=== PATIENT | female | born 1950 | race Hispanic/Latino ===

== ENCOUNTER 2019-08-17 11:29 | Day surgery (SDC) | payer MEDICARE ==
[2019-08-16 13:28] VITALS: BP 140/64
[2019-08-16 13:30] LABS: BASOPHILS % (AUTO) 0.4 % (0.0-5.0); EOSINOPHILS % (AUTO) 0.9 % (0.0-8.0); HEMATOCRIT 35.1 % (36-48); LYMPHOCYTES % (AUTO) 37.8 % (21.0-51.0); MEAN CORPUSCULAR HEMOGLOBIN 25.1 pg (27.0-33.0); MEAN CORPUSCULAR HGB CONC 30.5 g/dL (32.0-36.0); MEAN CORPUSCULAR VOLUME 82.4 fL (79-99); MONOCYTES % (AUTO) 6.3 % (3.0-13.0); NEUTROPHILS % (AUTO) 54.2 % (40.0-77.0); PLATELET COUNT (AUTO) 281 K/uL (130-400); RED BLOOD CELL COUNT(AUTO) 4.26 MIL/uL (4.00-5.50); RED CELL DISTRIBUTION WIDTH 15.4 % (11.0-15.5); WHITE BLOOD COUNT (AUTO) 8.1 K/uL (4.8-10.8)
[2019-08-16 13:41] LABS: CREATININE 0.9 mg/dL (0.5-1.5); POTASSIUM 4.4 mmol/L (3.5-5.1)
[2019-08-17] VITALS (21 sets, daily range): BP systolic 102–162; BP diastolic 44–94
[~2019-08-17] VITALS: Ht 162.6 cm; Wt 128.0 kg
[~2019-08-17 11:29] MED LIST: ALPR1TAB2 PO; CEFAZOLIN 3GM /D5W 100ML 100 ML IV SCH; CHOL500062 PO; DICL2100G TP; DOCU-116 PO; ESOM40CA PO; FLUO40CA7 PO; FLUT16H NASAL; FURO40TA5 PO; GABA-531 PO; GLIP5TAB11 PO; INSU100I21 SQ; INSU100I3 SQ; LACTATED RINGERS 1000ML 1,000 ML IV SCH; LORA10TA7 PO; LOSA25TA41 PO; METF-446 PO; MONT10TA21 PO; POTA20PA41 PO; PRAV10TA39 PO; RIVA20TA PO; [UNRECOGNIZED DRUG - CODE] TP
[2019-08-17] MEDS ORDERED: SODIUM CHLORIDE 0.9% 1000ML 1,000 ML IV ONE (11:44)
[2019-08-17] MEDS: CEFAZOLIN SODIUM 1 GM VIAL ONE ×2 (12:23→13:10)
[2019-08-17] MEDS ORDERED: ONDANSETRON HCL 4 MG/2 ML VIAL ONE (12:51)
[2019-08-17] MEDS ORDERED: LIDOCAINE PF 2% 5ML ABBOJECT ONE (12:51)
[2019-08-17] MEDS ORDERED: DEXAMETHASONE SOD PHOSPHATE 10MG/ML 1ML VIAL ONE (12:51)
[2019-08-17] MEDS ORDERED: MIDAZOLAM HCL 1 MG/ML 2ML VIAL ONE (12:51)
[2019-08-17] MEDS ORDERED: ROCURONIUM 10MG/1ML SYR 10 MG/ML ML ONE ×2 (12:52→13:37)
[2019-08-17] MEDS ORDERED: FENTANYL CITRATE PF 50 MCG/1 ML 2ML VIAL ONE (12:52)
[2019-08-17] MEDS ORDERED: EPINEPHRINE 1 MG/ML 30ML VIAL IJ ONE (13:25)
[2019-08-17] MEDS ORDERED: GLYCOPYRROLATE 1 MG/5 ML SYRINGE ONE (14:09)
[2019-08-17] MEDS ORDERED: NEOSTIGMINE 5MG/5ML SYR IV ONE (14:09)
[2019-08-17] MEDS ORDERED: ALBUTEROL SULFATE 0.083% 2.5 MG/3 ML INH IH SCH (16:15)
[2019-08-17 17:51] LABS: ABG HCO3 21.7 mmol/L (21.0-28.0); ABG OXYGEN SATURATION 91.8 % (95.0-99.0); ABG PCO2 42 mmHg (32-45)
--- NOTE | 2019-08-17 18:20 | NUR ---
PT ARRIVED O2 STATS 93% RM, WITH EFFORT 95%, NO DISTRESS. PT SITTING UP IN BED, DRESSING TO UPPER RT SHOULDER D/I. NOTIFIED ANESTHESIA TROY CATHERINE, ORDER TO GIVE ALBUTEROL NEB TREATMENT IN DAY PT. PT STATS INCREASED TO 96%. PT CONTINUED TO MONITOR PT., STATS DECLINED TO 92%, INFORMED DR. ZHAO 1700 OF PT STATUS, INSTRUCTED TO HAVE DORENE PERALTA ASSESS PT TO DETERMINE IF PT NEEDS TO BE ADMITTED. PT ASSESSED, ORDERS FOR ABG LAB GIVEN BY ANESTHESIA DORENE PERALTA THEN INSTRUCTED TO CALL PATIENT'S SOA ARCHITECT MANAGER OF LOSS PREVENTION OPERATIONS: SUSAN LOCK, TO REPORT ABG RESULTS AND CURRENT STATUS. PT INFORMATION REVIEWED BY PULMONOLOGIS SOA ARCHITECT, ORDERS TO INSTRUCT PT TO BE DISCHARGED HOME AND INSTRUCT PT TO USE HER CPAP MACHINE AT HOME TONIGHT,IF PT HAS DIFFICULTY BREATHING OR DISTRESS TO RETURN TO HOSPITAL EMERGENCY ROOM. INSTRUCTIONS GIVEN TO PT AND DAUGHTER, BOTH VERBALIZED UNDERSTANDING. PT FAMILY GIVEN 3 PRESCRIPTIONS FOR MEDICATIONS. PT IV D/C, PT DRESSED WITH ASSISTANCE. PT STABLE,SITTING IN WHEELCHAIR, NO DISTRESS, NO C/O PAIN TO RT SHOULDER.
== END 2019-08-17 18:20 ==
LOC: DAH 11:29
PROVIDERS: ATTEND Orthopaedic Surgery
DX: S46.011A Strain of muscle(s) and tendon(s) of the rotator cuff of right shoulder, initial encounter (principal); X58.XXXA Exposure to other specified factors, initial encounter; Y93.89 Activity, other specified; Y92.89 Other specified places as the place of occurrence of the external cause; Y99.8 Other external cause status; M75.41 Impingement syndrome of right shoulder; I10 Essential (primary) hypertension; E11.9 Type 2 diabetes mellitus without complications; J44.9 Chronic obstructive pulmonary disease, unspecified; E66.01 Morbid (severe) obesity due to excess calories; Z68.42 Body mass index [BMI] 45.0-49.9, adult; Z88.3 Allergy status to other anti-infective agents; Z88.8 Allergy status to other drugs, medicaments and biological substances; Z90.710 Acquired absence of both cervix and uterus; Z98.890 Other specified postprocedural states; Z82.49 Family history of ischemic heart disease and other diseases of the circulatory system; Z79.4 Long term (current) use of insulin; Z79.899 Other long term (current) drug therapy
CPT/HCPCS: 23130; 23410; 36415; 36600; 64415; 71045; 80048; 82803; 82948 ×2; 85025; 93005; 94640; A4213; A4215; A4221; A4222; A4223; A4510; A4600; A4649 ×4; A4663; A4930 ×3; A6223; C1713; J0171; J0690 ×2; J1100; J2001; J2250; J2405; J2710; J3010; J3490; J7030